=== PATIENT | male | born 1960 | race Caucasian/White ===

== ENCOUNTER → 2019-07-27 09:37 | Outpatient (BNVA) | payer BC, SELFPAY | PROVIDERS: Family Provider Family Medicine; PCP Family Medicine; Visit Provider Internal Medicine Rheumatology | DX: M05.79 Rheumatoid arthritis with rheumatoid factor of multiple sites without organ or systems involvement (principal); Z79.899 Other long term (current) drug therapy; Z11.59 Encounter for screening for other viral diseases; Z72.89 Other problems related to lifestyle | CPT/HCPCS: 36415; 80076; 82565; 85651; 86140; 86704; 86803; 87340 ==

== ENCOUNTER → 2019-07-27 09:54 | Outpatient (BNVA) | payer BC, SELFPAY | PROVIDERS: Family Provider Family Medicine; PCP Family Medicine; Visit Provider Internal Medicine Rheumatology | DX: M05.79 Rheumatoid arthritis with rheumatoid factor of multiple sites without organ or systems involvement (principal); Z79.899 Other long term (current) drug therapy | CPT/HCPCS: 85025 ==

== ENCOUNTER 2020-03-01 16:01 | Outpatient (CLI) | payer BC, SELFPAY ==
--- NOTE | 2020-03-01 16:08 | XR_ITS ---
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 FINDINGS: The L1-L4 bone mineral density measures 1.214 g/cm2. This corresponds to a T score score of 0.0 and Z score of -0.2. Left femoral neck bone mineral density measures 1.029 g/cm2. This corresponds to a T score of -0.5 an d Z score of -0.4. Right femoral neck bone mineral density measures 0.970 g/cm2. This corresponds to a T score -0.9of an d Z score of -0.8. Mean femoral neck bone mineral density measures 1.000 g/cm2. This corresponds to a T score of -0.7 an d Z score of -0.6. XR/XR DEXA axial skeleton* [id number] IMPRESSION: Normal bone mineralization Patient's FRAX calculated 10 year probability for major osteoporotic fracture i s 13.0 % and osteoporotic hip fracture is 1.8%.
== END 2020-03-01 16:02 | disposition home or self-care (01) ==
LOC: RADWPI 16:07
PROVIDERS: Family Provider Family Medicine; PCP Family Medicine; Visit Provider Family Medicine
DX: Z79.52 Long term (current) use of systemic steroids (principal)
CPT/HCPCS: 77080

== ENCOUNTER 2021-12-29 16:05 | Emergency (ER) | payer BC, SELFPAY ==
[2021-12-29 16:05] VITALS: BP 143/97; PULSE 53; RESP 18; O2SAT 99; BMI 28.8
--- NOTE | 2021-12-29 16:06 | XRR_ITS ---
PROCEDURE INFORMATION: Exam: XR Right Hand Exam date and time: 12/29/2021 4:13 PM Age: 61 years old Clinical indication: Injury or trauma; Other: Laceration; Right; Index finger; Additional info: Finger lac TECHNIQUE: Imaging protocol: Radiologic exam of the Right hand. Views: 3 or more views. COMPARISON: No relevant prior studies available. FINDINGS: Bones/joints: Three views submitted. There is posterior and medial dislocation of the 2nd PIP joint. Cortical deformity with several small ossific densities are also noted at both dorsal and volar aspects suggesting multiple fracture fragments. However some fragments demonstrate somewhat smooth cortical margin which may represent a chronic finding. Findings suggest acute fracture dislocation through the PIP joint with a possible pre-existing chronic injury. No other acute fracture dislocation. Minimal degenerative changes are also seen involving multiple DIP joints, 1st CMC joint and distal radioulnar joint. There is a small subchondral cyst with peripheral sclerosis in the distal ulna measuring 6 mm. Soft tissues: There is anterior soft tissue irregularity and foci of air suggesting laceration injury. Injury to the flexor tendon may be present in this setting. Soft tissue swelling is seen surrounding remaining 2nd digit. XR/XR hand RT min 3V* [id number] IMPRESSION: 1. Fracture dislocation at the 2nd PIP joint. Please see discussion above. 2. Soft tissue and other nonacute findings as described above.
--- NOTE | 2021-12-29 16:06 | W.ED.UPPEXIN ---
HPI - Extremity Injury (Upper) General: Chief Complaint: Wound/Laceration Stated Complaint: Finger lac Time Seen by Provider: 12/29/21 16:06 History of Present Illness: Mr. Eduardo is a 61-year-old gentleman who presents to the emergency department due to finger injury. He was using a table saw and cut his right finger. Moderate to severe intensity pain. Does have numbness/tingling. Patient feels generally ill. No other specific changes in health, exacerbating, or alleviating factors identified. Onset (ago): minute(s) Handedness: right Severity: moderate Associated symptoms: Reports numbness and other Review of Systems General: Reports: 10 or more systems reviewed and unremarkable except in HPI and below PFSH ED PFSH: Medical History Encounter for health education High risk medication use Immunization counseling Osteoarthritis Rheumatoid arthritis Surgical History History of hernia repair Family History Other Cancer Diabetes Social History Smoking and tobacco status: never smoked Alcohol intake: current Alcohol intake frequency: holidays/special occasions only Marital status: History of recent travel: Yes (To [place] July) Physical Exam Const: COMMON NORMALS: alert GENERAL APPEARANCE: cooperative, well developed, ill appearing and diaphoretic HENMT: COMMON NORMALS: normocephalic and atraumatic HEAD & SCALP: normocephalic and atraumatic Eye: COMMON NORMALS: conjunctivae normal CONJUNCTIVA: Yes conjunctivae normal SCLERA: sclerae normal Neck/C-Spine: COMMON NORMALS: supple GENERAL: Yes trachea midline Resp: COMMON NORMALS: clear to auscultation bilaterally EFFORT & INSPECTION: Yes able to speak in complete sentences AUSCULTATION: clear to auscultation bilaterally Cardio: COMMON NORMALS: regular rhythm RATE: bradycardic RHYTHM: regular rhythm GI: COMMON NORMALS: Soft to palpation PALPATION: Yes Soft to palpation and No Tenderness to palpation present (GI) Extremity: NARRATIVE EXTREMITY EXAM: isolated laceration to R 2nd digit. The digit remains attached just by the posterior skin aspect. Finger is insensate distally. Pale and delayed cap refill initially. GENERAL: Yes normal exam except as noted and No edema Neuro: COMMON NORMALS: moves all extremities SENSORIUM/ORIENTATION: Yes alert and No Orientation impaired Psych: COMMON NORMALS: mental status grossly normal and Normal thought process present THOUGHT PROCESS: Normal thought process present Course ED course: - Patient was seen and evaluated by me at bedside - Patient placed on cardiac monitors, IV access obtained - Initial evaluation notable for exam as above. Open fracture dislocation with laceration of right hand second digit in a [id number]-vyhvdwgi patient. - Labs and xrays personally interpreted by me -Tdap, antibiotic, analgesia, and antiemetic given - Labs notable for no acute abnormality requiring intervention. - Imaging notable for fracture dislocation of the second PIP joint -Upon reevaluation/repositioning the finger appears to have regained blood supply distally. Cap refill only mildly delayed. - Upon serial reexamination after treatment the patient was improved - Based on patient history, evaluation, and testing as interpreted the most likely cause of the patient's condition is open fracture dislocation of dominant hand second digit secondary to laceration with tablesaw with tenuous blood supply stability. - The results of ED evaluation were discussed with the patient including plan for transfer due to requirement for level of care not available if discharged to prevent significant worsening/deterioration. Specifically patient requires evaluation by hand surgery as there is evidence of vascular compromise/intermittent vascular compromise and patient has unstable open fracture. -Discussed with hand surgery and patient accepted as transfer to ER at [facility] in [place]. At the request of hand surgery I did discuss with the patient that he may be seen by hand surgery in the emergency department and discharged. - Patient was transferred without further deterioration or significant events. Note: Click bubbles or prepopulated gómez in note writing are used for assistance with data collection and billing and are inherently more limited than narrative and other text portions of this note. Please use narrative for additional clinical history and defer to narrative/free test for any case of contradictory information. If information appears in only free text or click bubble it should be considered present or absent as reported. Please contact note senior grant writer for clarifications of clinical information or contradictory information. MDM is a brief summary, contradictory or erroneous seeming information should be clarified and full note should be reviewed. Vital Signs: Vital signs: Vital Signs Pulse Rate 51 L 12/29/21 17:09 Respiratory Rate 16 08/26/22 17:53 Blood Pressure 106/69 08/26/22 17:09 Pulse Oximetry 99 12/29/21 17:53 Oxygen Delivery Me thod 12/29/21 17:09 MDM - Extremity Injury (Upper) Medical Decision Making 61-year-old gentleman on immunosuppression for rheumatoid arthritis presenting with laceration with open fracture of right hand second digit. Patient is right-hand dominant. Initially finger appeared to lack blood supply however with repositioning blood supply improved though positioning remains tenderness. Patient clinical presentation consistent with partial vasovagal response as well. Improved with treatment. Patient transferred for hand surgery. Medical Records I reviewed the patient's medical records. Lab Data I reviewed the patient's lab results. : 12/29/21 16:40 12/29/21 16:40 Radiology Impressions Hand X-Ray 12/29/21 16:06 IMPRESSION: 1. Fracture dislocation at the 2nd PIP joint. Please see discussion above. 2. Soft tissue and other nonacute findings as described above. Laboratory Results WBC 6.2 10^3/uL (4.0-10.0) 12/29/21 16:40 RBC 4.04 10^6/uL (4.1-5.3) L 12/29/21 16:40 Hgb 13.1 g/dL (11.7-16.6) 12/29/21 16:40 Hct 39.2 % (42.0-52.0) L 12/29/21 16:40 MCV 97.0 fl (80-94) H 12/29/21 16:40 MCH 32.4 pg (28.0-34.0) 12/29/21 16:40 MCHC 33.4 g/dL (30.0-36.0) 12/29/21 16:40 RDW 12.4 % (12.1-15.1) 12/29/21 16:40 Plt Count 224 10^3/cmm (130-400) 12/29/21 16:40 MPV 10.1 fL (7.4-10.4) 12/29/21 16:40 Neut % (Auto) 40.8 % 12/29/21 16:40 Lymph % (Auto) 41.7 % 12/29/21 16:40 [place] % (Auto) 12.3 % 12/29/21 16:40 Eos % (Auto) 4.7 % 12/29/21 16:40 Baso % (Auto) 0.2 % 12/29/21 16:40 Neut # (Auto) 2.52 10^3/uL (1.8-7.7) 12/29/21 16:40 Lymph # (Auto) 2.6 10^3/uL (0.8-4.8) 12/29/21 16:40 [place] # (Auto) 0.8 10^3/uL (0.2-0.9) 12/29/21 16:40 Eos # (Auto) 0.3 10^3/uL (0.0-0.8) 12/29/21 16:40 Baso # (Auto) 0.0 10^3/uL (0.0-0.1) 12/29/21 16:40 Nucleated RBC % (auto) 0 % 12/29/21 16:40 Nucleated RBCs # 0.0 /100WBC 12/29/21 16:40 Sodium 142 mmol/L (136-145) 12/29/21 16:40 Potassium 3.7 mmol/L (3.5-5.1) 12/29/21 16:40 Chloride 107 mmol/L (98-107) 12/29/21 16:40 Carbon Dioxide 21 mmol/L (22-29) L 12/29/21 16:40 Anion Gap 17.7 (5-19) 12/29/21 16:40 BUN 22 mg/dL (8-23) 12/29/21 16:40 Creatinine 0.9 mg/dL (0.7-1.2) 12/29/21 16:40 GFR Calculation 85.8 mL/min (90-130) L 12/29/21 16:40 Glucose 114 mg/dL (65-115) 12/29/21 16:40 Calculated Osmolality 298 mOsm/kg (285-295) H 12/29/21 16:40 Calcium 8.2 mg/dL (8.5-10.5) L 12/29/21 16:40 Total Bilirubin 0.3 mg/dL (0.15-1.2) 12/29/21 16:40 AST 19 U/L (0-40) 12/29/21 16:40 ALT 10 U/L (0-41) 12/29/21 16:40 Alkaline Phosphatase 60 U/L (40-130) 12/29/21 16:40 Total Protein 6.5 g/dL (6.6-8.7) L 12/29/21 16:40 Albumin 3.9 g/dL (3.5-5.2) 12/29/21 16:40 Globulin 2.6 g/dL (1.3-4.6) 12/29/21 16:40 Discharge Plan Discharge Patient Disposition: Xfer Short-Term Hosp Clinical Impression: Laceration, High risk medication use, Open fracture dislocation of finger Condition: Stable Referrals: Garry Ray MD [Primary Care Provider] - Coding Level of Care Code ED Purchase Request Editor for Dennise Lomas
[2021-12-29] MEDS: ceFAZolin 2,000 MG in sodium chloride 0.9% (plus) 50 ML 100 MG IV (16:18)
[2021-12-29 16:19] VITALS: RESP 18; O2SAT 99
[2021-12-29] MEDS: fentaNYL 50 mcg/mL INJ 2mL IVP ×2 (16:19→17:53)
[2021-12-29] MEDS: tetanus-dipt-pertussis 0.5 mL SDV IM (16:19)
[2021-12-29] MEDS: ondansetron 2 mg/ML SDV 2 mL 4 MG IVP (16:20)
[2021-12-29 16:52] LABS: Basophils % 0.2 %; Eosinophils # 0.3 10^3/uL (0.0-0.8); Eosinophils % 4.7 %; Hematocrit 39.2 % (42.0-52.0); Hemoglobin 13.1 g/dL (11.7-16.6); Lymphocytes # 2.6 10^3/uL (0.8-4.8); Lymphocytes % 41.7 %; Mean Corpuscular HGB Conc 33.4 g/dL (30.0-36.0); Mean Corpuscular Hemoglobin 32.4 pg (28.0-34.0); Mean Platelet Volume 10.1 fL (7.4-10.4); Monocytes # 0.8 10^3/uL (0.2-0.9); Monocytes % 12.3 %; Neutrophils # 2.52 10^3/uL (1.8-7.7); Neutrophils % 40.8 %; Nucleated Red Blood Cells % 0 %; Platelet Count 224 10^3/cmm (130-400); Red Blood Count 4.04 10^6/uL (4.1-5.3); Red Cell Distribution Width 12.4 % (12.1-15.1); White Blood Count 6.2 10^3/uL (4.0-10.0)
[2021-12-29 17:09] VITALS: BP 106/69; PULSE 51; O2SAT 98
--- NOTE | 2021-12-29 17:09 | PC.NURSE ---
PT REQUESTS SIGN TRANSFER FORM DUE TO HIS INABILITY TO SIGN WITH HIS RIGHT HAND.
[2021-12-29 17:40] LABS: Alanine Aminotransferase 10 U/L (0-41); Albumin Level 3.9 g/dL (3.5-5.2); Alkaline Phosphatase 60 U/L (40-130); Anion Gap 17.7 (5-19); Aspartate Amino Transferase 19 U/L (0-40); Blood Urea Nitrogen 22 mg/dL (8-23); Calcium 8.2 mg/dL (8.5-10.5); Carbon Dioxide 21 mmol/L (22-29); Chloride 107 mmol/L (98-107); Globulin 2.6 g/dL (1.3-4.6); Glomerular Filtration Rate 85.8 mL/min (90-130); Glucose 114 mg/dL (65-115); Osmolality Calculated 298 mOsm/kg (285-295); Potassium 3.7 mmol/L (3.5-5.1); Sodium 142 mmol/L (136-145); Total Bilirubin 0.3 mg/dL (0.15-1.2); Total Protein 6.5 g/dL (6.6-8.7)
[2021-12-29 17:53] VITALS: RESP 16; O2SAT 99
== END 2021-12-29 18:04 | disposition short-term general hospital (02) ==
PROVIDERS: Emergency Provider Emergency Medicine; PCP Family Medicine
DX: S62.610B Displaced fracture of proximal phalanx of right index finger, initial encounter for open fracture (principal); W27.0XXA Contact with workbench tool, initial encounter; Z23 Encounter for immunization
CPT/HCPCS: 73130; 80053; 85025; 90471; 90715; 96365; 96366; 96375; 96376; 99284; J2405; J3010

== ENCOUNTER → 2023-01-02 14:37 | Outpatient (BNVA) | payer BC, SELFPAY | PROVIDERS: PCP Family Medicine; Visit Provider Internal Medicine | DX: R07.9 Chest pain, unspecified (principal) | CPT/HCPCS: 93005 ==

== ENCOUNTER 2023-01-08 07:53 | Outpatient (CLI) | payer BC, SELFPAY ==
--- NOTE | 2023-01-08 08:00 | USCV_ITS ---
Rodrigo Eduardo Age: 62 Gender: M : 1960 Exam Date: 01/08/2023 08:16 Ordering Phys: Garry Ray MD Technologist: Reva Whalen Exam Location: [facility] – [place] Indication: Atrial fibrillation BP: 130 / 70 HR: 91 Rhythm: Atrial fibrillation Technical Quality: Good MEASUREMENTS (Male / Female) Normal Values 2D ECHO LV Diastolic Diameter PLAX 5.1 cm 4.2 - 5.9 / 3.9 - 5.3 cm LV Systolic Diameter PLAX 2.5 cm IVS Diastolic Thickness 1.1 cm 0.6 - 1.0 / 0.6 - 0.9 cm IVS Systolic Thickness 1.7 cm LVPW Diastolic Thickness 1.1 cm 0.6 - 1.0 / 0.6 - 0.9 cm LVPW Systolic Thickness 2.0 cm LVOT Diameter 2.0 cm LV Ejection Fraction 2D Teich 80.8 % LV Ejection Fraction MOD 2C 62.8 % LV Ejection Fraction 2C AL 62.6 % LA Diameter 3.9 cm LA Width 4.3 cm LA Height 6.7 cm RA Width 2.7 cm RA Height 4.3 cm Aorta at Sinotubular Diameter 3.3 cm IVC Diameter 1.7 cm M-MODE Aortic Annulus Diameter 3.1 cm LA Ao Ratio MM 1.4 MV E Point Septal Separation 1.2 cm DOPPLER AV Peak Velocity 117.0 cm/s LVOT Peak Velocity 86.0 cm/s AV Area Cont Eq vti 2.1 cm squared AV Area Cont Eq pk 2.4 cm squared MV Peak Velocity 82.0 cm/s MV Area PHT 4.9 cm squared Mitral E to A Ratio 3.1 MV E' Velocity 69.0 cm/s TR Peak Velocity 205.5 cm/s TR Peak Gradient 16.9 mmHg Right Atrial Pressure 5.0 mmHg Pulmonary Artery Systolic Pressu 21.9 mmHg PV Peak Velocity 94.0 cm/s RV Acceleration Time 0.1 s RV Ejection Time 0.3 s RV AcT/ET 0.4 FINDINGS Left Ventricle Left ventricle is normal in size. LV systolic fucntion is normal with EF of 50-55%. No regional wall motion abnormalities. Diastolic function is indeterminate because of atrial fibrillation. Right Ventricle Normal in size and function Right Atrium Normal in size Left Atrium Dilated Mitral Valve Structurally normal mitral valve. Mild to moderate mitral regurgitation. Aortic Valve Structurally normal aortic valve. Mild aortic regurgitation. No significant stenosis. Tricuspid Valve Mild tricuspid regurgitation. Insufficient TR jet to calculate RVSP Pulmonic Valve Not well visualized Pericardium Normal Aorta Normal in size IVC Appears to be normal CONCLUSIONS LV systolic function is normal with EF of 50 to 55%. Diastolic function is indeterminate because of atrial fibrillation Left atrial dilation Mild to moderate mitral regurgitation Mild tricuspid regurgitation No comparison studies are available. Tate Mckeon MD (Electronically Signed) Final Date: 25 January 2023 14:25 S
== END 2023-01-08 07:54 | disposition home or self-care (01) ==
LOC: RAD 07:57
PROVIDERS: PCP Family Medicine; Visit Provider Family Medicine
DX: I48.91 Unspecified atrial fibrillation (principal); I34.0 Nonrheumatic mitral (valve) insufficiency; I07.1 Rheumatic tricuspid insufficiency
CPT/HCPCS: 93306

== ENCOUNTER → 2024-06-12 09:17 | Outpatient (BNVA) | payer BC, SELFPAY | PROVIDERS: PCP Family Medicine; Visit Provider Family Medicine | DX: R79.89 Other specified abnormal findings of blood chemistry (principal); Z79.899 Other long term (current) drug therapy; I48.11 Longstanding persistent atrial fibrillation; Z79.01 Long term (current) use of anticoagulants; M05.79 Rheumatoid arthritis with rheumatoid factor of multiple sites without organ or systems involvement; Z12.5 Encounter for screening for malignant neoplasm of prostate; E55.9 Vitamin D deficiency, unspecified | CPT/HCPCS: 80053; 80061; 82306; 82607; 82746; 84443; 85025; 85651; 86140; G0103 ==

== ENCOUNTER 2024-08-04 06:48 | Outpatient (CLI) | payer BC, SELFPAY ==
--- NOTE | 2024-08-04 07:00 | USCV_ITS ---
Jayce Rodrigo Age: 63 Gender: M : 1960 Exam Date: 08/04/2024 07:00 Ordering Phys: Felicitas Hendrickson NP Technologist: Exam Location: [facility] – [place] Indication: mv regurg BP: / HR: 69 Rhythm: Sinus Technical Quality: MEASUREMENTS (Male / Female) Normal Values 2D ECHO LV Diastolic Diameter PLAX 4.7 cm 4.2 - 5.9 / 3.9 - 5.3 cm IVS Diastolic Thickness 1.1 cm 0.6 - 1.0 / 0.6 - 0.9 cm IVS Systolic Thickness 2.1 cm LVPW Diastolic Thickness 1.7 cm 0.6 - 1.0 / 0.6 - 0.9 cm LVPW Systolic Thickness 2.1 cm LVOT Diameter 2.1 cm LV Ejection Fraction 2D Teich 66.0 % LV Ejection Fraction MOD 4C 60.6 % LV Ejection Fraction MOD 2C 58.6 % LV Ejection Fraction 2C AL 59.4 % LA Diameter 4.5 cm RA Systolic Volume 4C AL 70.7 ml RA Systolic Volume 4C MOD 71.6 ml Aorta at Sinotubular Diameter 3.0 cm M-MODE LA Ao Ratio MM 1.4 AV Cusp Separation MM 2.8 cm DOPPLER AV Peak Velocity 120.0 cm/s LVOT Peak Velocity 73.0 cm/s AV Area Cont Eq vti 2.2 cm squared AV Area Cont Eq pk 2.1 cm squared MV Peak Velocity 110.0 cm/s MV Area PHT 3.9 cm squared Mitral E to A Ratio 4.7 TV Peak Velocity 301.0 cm/s TR Peak Velocity 302.0 cm/s TR Peak Gradient 36.5 mmHg TV Peak E Velocity 90.0 cm/s PV Peak Velocity 120.0 cm/s FINDINGS Left Ventricle Normal left ventricular size, systolic function and wall thickness, with no regional wall motion abnormalities. Left ventricular ejection fraction is estimated at 60 %. Grade III/IV diastolic dysfunction (restrictive filling pattern), severely elevated filling pressures. Right Ventricle The right ventricle is normal in size and function. Right Atrium The right atrium is normal in size. Left Atrium Moderately increased left atrial size. Mitral Valve Mildly thickened mitral valve. No mitral valve stenosis. Moderate mitral valve regurgitation. Aortic Valve Mild aortic valve calcification. No aortic valve stenosis. Mild aortic valve regurgitation. Tricuspid Valve Mild tricuspid valve regurgitation. Pulmonic Valve Structurally normal pulmonic valve without significant stenosis. There is no pulmonic regurgitation. Pericardium Normal pericardium without effusion. Aorta Normal ascending aorta dimension. IVC The inferior vena cava appears normal. CONCLUSIONS Normal left ventricular size, systolic function and wall thickness, with no regional wall motion abnormalities. Left ventricular ejection fraction is estimated at 60 %. Grade III/IV diastolic dysfunction (restrictive filling pattern), severely elevated filling pressures. Moderately increased left atrial size. Mildly thickened mitral valve. No mitral valve stenosis. Moderate mitral valve regurgitation. Mild tricuspid valve regurgitation. There is no pericardial effusion. Right atrial pressure is around 10 mm of mercury. Joyce Haney MD (Electronically Signed) Final Date: 20 August 2024 16:04 S
== END 2024-08-04 06:49 | disposition home or self-care (01) ==
PROVIDERS: PCP Family Medicine; Visit Provider Nurse Practitioner Family
DX: I34.0 Nonrheumatic mitral (valve) insufficiency (principal); R93.1 Abnormal findings on diagnostic imaging of heart and coronary circulation; I35.8 Other nonrheumatic aortic valve disorders; I35.1 Nonrheumatic aortic (valve) insufficiency; I07.1 Rheumatic tricuspid insufficiency
CPT/HCPCS: 93306

== ENCOUNTER 2025-01-25 10:13 | Emergency (ER) | payer BC, SELFPAY ==
[2025-01-25] VITALS (7 sets, daily range): BP systolic 132–156; BP diastolic 87–108; PULSE 64–126; RESP 20; TEMP 36.7; O2SAT 94–98; BMI 30.9
--- NOTE | 2025-01-25 10:19 | ECG_ITS ---
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 Measurements Intervals [place] Rate: 127 P: 233 IN: 176 QRS: -39 QRSD: 142 T: -4 QT: 292 QTc: 425 Interpretive Statements ECTOPIC ATRIAL TACHYCARDIA LEFT AXIS DEVIATION [QRS AXIS < -30] INTRAVENTRICULAR CONDUCTION DELAY [130+ ms QRS DURATION] Compared to ECG 01/02/2023 14:44:08 Left-axis deviation now present Intraventricular conduction delay now present Sinus rhythm no longer present Indeterminate axis no longer present Electronically Signed On 01-25-2025 20:20:53 CDT by Barbie Chun M.D. [email or web address]
--- OUTSIDE RECORDS SUMMARY | 2025-01-25 10:24 | XMS_ITS | Clinical Summary ---
Author Organization [facility] A dministration Address [address] [place] [address] Care Team Providers Care Mold Checker Name Role Phone Garry Ray MD Primary Care Provider [phone] Allergies Active Allergy Reactions Criticality Noted Date Comments Montelukast Itching Low 01/02/2023 Medications fluticasone propionate (FLONASE) 50 mcg/spray [place], Suspension nasal inhaler shake liquid and USE TWO SPRAYS IN EACH NOSTRIL EVERY DAY 3 Active methotrexate (RHEUMATREX) 2.5 mg Tablet take SEVEN tablets BY MOUTH every week 3 Active metoprolol tartrate (LOPRESSOR) 25 mg tablet Take 25 mg by mouth 2 times daily. 3 Active glucosamine HCl/chondroitin dolan (GLUCOSAMINE-CH ONDROITIN ORAL) Take by mouth daily. Active TURMERIC ORAL Take by mouth. A ctive multivitamin (DAILY-MELONIE) tablet Take 1 Tablet by mouth daily. Active CHOLECALCIFEROL , VITAMIN D3, ORAL Take by mouth. Activ e famotidine (PEPCID) 20 mg tablet Take 20 mg by mouth daily at bedtime. Active folic acid (FOLVITE) 1 mg tablet Take 1 mg by mouth daily. Active cetirizine (ZyrTEC) 10 mg tablet Take 10 mg by mouth daily at bedtime. Active Orencia ClickJect 125 mg/mL Auto-Injector 1 Pen by subcutaneous (via wearable injector) route every 7 days. 5 Active aspirin (AUSTYN) 325 mg tablet Take 325 mg by mouth daily. Active Active Problems Problem Noted Date Diagnosed Date Sinus bradycardia 11/21/2023 A-fib 07/25/2023 Paroxysmal atrial fibrillation 04/25/2023 Anticoagulated 04/25/2023 Encounters Date Type Department Care Team Description 01/19/2025 External Device Data ST[facility] ABSTRACTION Provider, Abstract 01/12/2025 External Device Data [facility] ABSTRACTION Provider, Abstract 11/24/2024 External Device Data [facility] ABSTRACTION Provider, Abstract 10/27/2024 External Device Data [facility] ABSTRACTION Provider, Abstract 10/27/2024 External Device Data [facility] ABSTRACTION Provider, Abstract from Last 3 Months Immunizations Immunization Administration Dates Next Due (ADACEL/BOOSTRIX)(10 YR UP) TDAP VACCINE, 0.5ML, IM 12/29/2021 (PFIZER)(12 YR UP) COVID-19 VACCINE - EMERGENCY USE AUTHORIZATION, MRNA, [id number](PF) 30 MCG/0.3 ML IM SUSP 02/03/2021,07/01/2020,06/03/2020 (PREVNAR 13)(6 WKS UP) PNEUM OCOCCAL CONJUGATE (PCV13) 0.5 ML, IM 04/13/2016 (TDVAX)(7 YRS UP) TETANUS AN D DIPHTHERIA TOXOIDS, ADSORBED (2 LF OF TETANUS TOXOID AND 2 LF OF DIPHTHERIA TOXOID), 0.5ML (PF), IM 10/06/2004 Influenza Seasonal Unspecifi ed Formulation IM 02/15/2023,04/11/2021,02/03/2017,2015,02/03/2014,02/04/2012 Zoster Vaccine Live SQ 10/13/2018,06/04/2018 Social History Tobacco Use Types Packs/Day Years Used Date Smoking Tobacco: Never Smokeless Tobacco: Former Snuff Tobacco Cessation:Counseling Given: No Feeling Safe Answer Date Recorded Are you in a relationship wi th someone who hurts you emotionally and/or physically? 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 Gender Identity Not on file Sexual Orientation Not on file Last Filed Vital Signs Vital Sign Reading Time Taken Comments Blood Pressure 138/80 09/10/2024 8:06 AM CDT Pulse 61 09/10/2024 8:06 AM CDT Temperature 36.6 C (97.8 F) 08/22/2023 11:45 AM CDT Respiratory Rate 16 08/22/2023 11:45 AM CDT Oxygen Saturation 98% 11/21/2023 2:05 PM CDT Inhaled Oxygen Concentration - - Weight 104.8 kg (231 lb) 09/10/2024 8:06 AM CDT Height 185.4 cm (6' 1 ) 09/10/2024 8:06 AM CDT Body Mass Index 30.48 09/10/2024 8:06 AM CDT Plan of Treatment Upcoming Encounters Date Type Department Care Team (Late st Contact Info) Description 06/16/2025 8:00 AM AGRICULTURAL SCIENCE PROFESSOR Office Visit [facility] [address] [facility] [address] [place] [phone] Marilyn Berger MD [address] [facility] [address] [place] [phone] Imani Turner PA NO ADDRESS ON FILE Health Maintenance Due Date Last Done Comments Pre-Diabetes and Diabetes Screening 1960 COLORECTAL SCREENING 2005 Colorectal Cancer Screening 2005 FIT-DNA Q 3 years 2005 FIT/FOBT Q 1 year 2005 Flex Sig/CT Colonography Q 5 years 2005 ZOSTER VACCINE (1 of 2) 12/08/2018 10/13/2018, 06/04 RSV VACCINE (60+ or ) (1 - Risk 60-74 years 1-dose series) 2020 INFLUENZA VACCINE (#1) 2024 , 02/27/2022, 04/11/2021, Additional history exists COVID-19 Vaccine (8 - Pfizer risk ) 01/04/2025 02/04/2024, 04/04/2023, 02/27/2022, Additional history exists DTAP/TDAP/TD VACCINES (2 - T d or Tdap) 12/30/2031 12/29/2021, 10/06/2004 Insurance [employer] Advance Directives For more information, please contact: [phone] * Full Code (Latest Code Status on File) Date Activated Date Inactivated Comments 08/21/2023 11:17 AM 08/22/2023 4:45 PM * Full Code Date Activated Date Inactivated Comments 08/21/2023 6:10 AM 08/21/2023 11:17 AM Care Teams Mold Checker Relationship Specialty Start Date End Date Garry Ray MD [address] [phone] PCP - General Family Practice 08/23/23
--- OUTSIDE RECORDS SUMMARY | 2025-01-25 10:24 | XMS_ITS | Clinical Summary ---
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
--- OUTSIDE RECORDS SUMMARY | 2025-01-25 10:24 | XMS_ITS | Encounter Summary ---
Author Organization [employer] [facility] Address [address] [place] [address] Care Team Providers Care Caretaker Name Role Phone Unavailable Primary Care Provider Unavailabl e Encounter Details Date Type Department Care Team (Latest Contact Info) Description 10/06/2004 Outpatient Historical [facility] Medicine 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
--- OUTSIDE RECORDS SUMMARY | 2025-01-25 10:24 | XMS_ITS | Encounter Summary ---
Author Organization [facility] Address 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 Gender Identity Not on file Sexual Orientation Not on file documented as of this encounter Plan of Treatment Upcoming Encounters Date Type Department Care Team (Late st Contact Info) Description 06/16/2025 8:00 AM CLIENT CARE MANAGER Office Visit [facility] [address] [place] [phone] Marilyn Berger MD [address] [place] [phone] Imani Turner PA NO ADDRESS ON FILE documented as of this encounter Visit Diagnoses Not on filedocumented in this encounter Care Teams Senior Android Software Engineer Relationship Specialty Start Date End Date Garry Ray MD [address] [phone] PCP - General Family Practice 08/23/23 documented as of this encounter
--- OUTSIDE RECORDS SUMMARY | 2025-01-25 10:24 | XMS_ITS | Encounter Summary ---
Author Organization [employer] [facility] Address [address] [place] [address] Care Team Providers Care Numerologist Name Role Phone Unavailable Primary Care Provider Unavailabl e Encounter Details Date Type Department Care Team (Latest Contact Info) Description 02/08/2004 Outpatient Historical [facility] Medicine 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
--- NOTE | 2025-01-25 10:29 | XR_ITS ---
WS: [id number] Exam: XR chest 1V portable [id number] Date/Time of Exam: 01/25/2025 10:29 AM Reason For Exam: chest pain Comparison 02/11/2020. Lungs are fully expanded and clear. Cardiomediastinal silhouette unremarkable for technique. No pleural effusion. Unremarkable bony structures. XR/XR chest 1V portable [id number] IMPRESSION: 1. No acute cardiopulmonary finding.
--- NOTE | 2025-01-25 10:30 | W.ED.ARRPALP ---
HPI - Arrhythmia/Palpitations General: Chief Complaint: Arrhythmia/Palpitations Stated Complaint: bp issues, high hr, chest discomfort Time Seen by Provider: 01/25/25 10:29 History of Present Illness: 64-year-old male presents to the emergency room with rapid heart rate. He said this for the last day and a half is more intense today. He has a known history of atrial fibrillation previously had an ablation he was recently switched from metoprolol to tartrate to metoprolol succinate. No chest pain at this time. No shortness of breath or diaphoresis. Related Data Home Medications ?Medication ?Instructions ?Recorded ?Confirmed cetirizine 10 mg tablet (Zyrtec) 10 mg PO DAILY 08/04/19 01/18/25 Folic Acid PO 01/02/23 01/18/25 Multi Vitamin PO 01/02/23 01/18/25 antiarthritic combination no.2 900 mg PO 01/02/23 01/18/25 mg tablet (glucosamine-chondroitin) cholecalciferol (vitamin D3) 25 25 mcg PO DAILY 01/02/23 01/18/25 mcg (1,000 unit) capsule fluticasone propionate 50 1 spray intranasal BID 01/02/23 01/18/25 mcg/actuation nasal spray,suspension aspirin 325 mg tablet,delayed 325 mg PO DAILY 07/10/24 01/18/25 release abatacept 125 mg/mL subcutaneous mg SUBCUT 12/10/24 01/18/25 auto-injector (Orencia ClickJect) hydroxychloroquine 200 mg tablet mg PO 12/10/24 01/18/25 Previous Rx's ?Medication ?Instructions ?Recorded methotrexate sodium 2.5 mg tablet 15 mg (6 x 2.5 mg) PO .Q7days #30 09/09/19 tabs omeprazole 40 mg capsule,delayed 40 mg PO DAILY #90 caps 12/10/24 release pneumo 21-mellisa conj-dip crm(PF) 0.5 0.5 ml IM ONCE #0.5 mL 12/10/24 mL IM syringe metoprolol succinate 50 mg 75 mg (1.5 x 50 mg) PO DAILY #135 01/18/25 tablet,extended release 24 hr tabs metoprolol succinate 100 mg 100 mg PO DAILY #30 tabs 01/25/25 tablet,extended release 24 hr (Toprol XL) Allergies Allergy/AdvReac Type Severity Reaction Status Date / Time montelukast (From Singulair) Allergy Mild ADR-Itching Verified 01/18/25 14:43 Review of Systems Const: Denies: fever(s) or chills Card: Reports: palpitations and irregular heart rhythm; Denies: chest pain Resp: Denies: dyspnea GI: Denies: abdominal pain : Denies: dysuria, urinary frequency or urinary urgency Musc: Denies: neck pain or back pain Skin/Breast: Denies: rash PFSH ED PFSH: Medical History Rheumatoid arthritis involving multiple sites with positive rheumatoid factor Osteoarthritis Encounter for health education High risk medication use Immunization counseling Surgical History History of hernia repair Family History Father Cancer Leukemia Congestive heart failure (CHF) Mother Diabetes Social History Smoking and tobacco/nicotine status: never used tobacco/nicotine Alcohol intake: current Alcohol intake frequency: 0-2 Drinks per Day Alcohol type: beer Substance/Drug Use: never Marital status: Physical Exam Const: COMMON NORMALS: no acute distress GENERAL APPEARANCE: cooperative and comfortable ORIENTATION/CONSCIOUSNESS: Yes awake, Yes oriented to person, Yes oriented to place and Yes oriented to time HENMT: COMMON NORMALS: normocephalic, atraumatic and hearing grossly normal bilaterally HEAD & SCALP: normocephalic and atraumatic Resp: COMMON NORMALS: normal respiratory effort, No retractions, No use of accessory muscles and clear to auscultation bilaterally AUSCULTATION: clear to auscultation bilaterally Cardio: COMMON NORMALS: regular rate, regular rhythm and No murmurs present (Cardio) RATE: regular rate RHYTHM: regular rhythm GI: COMMON NORMALS: Soft to palpation and No hepatosplenomegaly present AUSCULTATION: Yes normoactive bowel sounds PALPATION: Yes Soft to palpation, No Tenderness to palpation present (GI), No Guarding due to palpation present (GI) and Yes No hepatosplenomegaly present Extremity: COMMON NORMALS: normal to inspection, capillary refill normal, no clubbing, cyanosis or edema, no calf tenderness and no pedal edema Neuro: SENSORIUM/ORIENTATION: Yes oriented to person, Yes oriented to place and Yes oriented to time Skin: COMMON NORMALS: no rashes or lesions noted GENERAL SKIN EXAM: no rashes or lesions noted Course Vital Signs: Vital signs: Vital Signs Temperature 98.0 F 01/25/25 10:19 Pulse Rate 85 01/25/25 12:34 Respiratory Rate 20 H 01/25/25 10:19 Blood Pressure 145/87 01/25/25 12:34 Pulse Oximetry 94 01/25/25 12:34 Oxygen Delivery Me thod Room Air 01/25/25 11:27 MDM - Arrhythmia/Palpitations Medical Decision Making Patient converted and maintained his on normal sinus rhythm after push dose of IV Cardizem IV drip was not started. Monitoring for time then ambulated he maintains in the sinus rhythm. His blood pressure still slightly elevated heart rate is at approximately 100. Rhythm on telemetry after converting maintained sinus with a rate of 90-105. Patient remained asymptomatic. Discussed with Dr. Mckeon will increase his metoprolol to 100 mg once a day and have him follow-up with cardiology within the next week return if he has recurrence. Medical Records I reviewed the patient's medical records. Lab Data I reviewed the patient's lab results. 01/25/25 10:36 01/25/25 10:36 Radiology Impressions Chest X-Ray 01/25/25 10:29 IMPRESSION: 1. No acute cardiopulmonary finding. Laboratory Results WBC 6.21 10^3/uL (3.29-11.43) 01/25/25 10:36 RBC 4.71 10^6/uL (3.85-5.65) 01/25/25 10:36 Hgb 15.20 g/dL (11.27-16.99) 01/25/25 10:36 Hct 45.0 % (37-53) 01/25/25 10:36 MCV 95.5 fl (82-101) 01/25/25 10:36 MCH 32.3 pg (27-33) 01/25/25 10:36 MCHC 33.8 g/dL (30-55) 01/25/25 10:36 RDW 13.1 % (12.1-15.1) 01/25/25 10:36 Plt Count 273 10^3/cmm (157-399) 01/25/25 10:36 MPV 9.9 fL (7.4-10.4) 01/25/25 10:36 Neut % (Auto) 62.4 % 01/25/25 10:36 Lymph % (Auto) 23.2 % 01/25/25 10:36 [place] % (Auto) 10.3 % 01/25/25 10:36 Eos % (Auto) 3.4 % 01/25/25 10:36 Baso % (Auto) 0.5 % 01/25/25 10:36 Neut # (Auto) 3.88 10^3/uL (1.8-7.7) 01/25/25 10:36 Lymph # (Auto) 1.4 10^3/uL (0.8-4.8) 01/25/25 10:36 [place] # (Auto) 0.6 10^3/uL (0.2-0.9) 01/25/25 10:36 Eos # (Auto) 0.2 10^3/uL (0.0-0.8) 01/25/25 10:36 Baso # (Auto) 0.0 10^3/uL (0.0-0.1) 01/25/25 10:36 Nucleated RBC % (auto) 0 % 01/25/25 10:36 Nucleated RBCs # 0.0 /100WBC 01/25/25 10:36 ESR 2 mm/hr (0-10) 01/25/25 10:36 Sodium 140 mmol/L (136-145) 01/25/25 10:36 Potassium 4.9 mmol/L (3.5-5.1) 01/25/25 10:36 Chloride 103 mmol/L (98-107) 01/25/25 10:36 Carbon Dioxide 24 mmol/L (22-29) 01/25/25 10:36 Anion Gap 17.9 (5-19) 01/25/25 10:36 BUN 15 mg/dL (8-23) 01/25/25 10:36 Creatinine 0.8 mg/dL (0.7-1.2) 01/25/25 10:36 GFR Calculation 97.3 mL/min (90-130) 01/25/25 10:36 Glucose 110 mg/dL (65-115) 01/25/25 10:36 Calculated Osmolality 291 mOsm/kg (285-295) 01/25/25 10:36 Calcium 9.2 mg/dL (8.5-10.5) 01/25/25 10:36 Total Bilirubin 0.3 mg/dL (0.15-1.2) 01/25/25 10:36 AST 20 U/L (0-40) 01/25/25 10:36 ALT 11 U/L (0-41) 01/25/25 10:36 Alkaline Phosphatase 67 U/L (40-130) 01/25/25 10:36 Troponin T Baseline 11 ng/L (0-15) 01/25/25 10:36 Troponin T 120 Minute 10.27 ng/L (0-15) 01/25/25 12:14 Delta Troponin T -0.73 ABS# (0-10) L 01/25/25 12:14 Total Protein 7.2 g/dL (6.6-8.7) 01/25/25 10:36 Albumin 4.5 g/dL (3.5-5.2) 01/25/25 10:36 Globulin 2.7 g/dL (1.3-4.6) 01/25/25 10:36 TSH 1.06 uIU/mL (0.27-4.20) 01/25/25 10:36 All radiology interpretation(s) finalized by discharge EKG Data EKG 1: Interpretation: EKG 01/25/2025 10:19 AM A-fib with RVR rate of [address] changes noted Other EKG comments: Chest X-Ray 01/25/25 10:29 IMPRESSION: 1. No acute cardiopulmonary finding. Discharge Plan Discharge Patient Disposition: Home Clinical Impression: Paroxysmal A-fib Condition: Stable Prescriptions: New metoprolol succinate [Toprol XL] 100 mg tablet extended release 24 hr 100 mg PO DAILY Qty: 30 0RF No Action cetirizine [Zyrtec] 10 mg tablet 10 mg PO DAILY aspirin 325 mg tablet,delayed release (DR/EC) 325 mg PO DAILY hydroxychloroquine 200 mg tablet PO Orencia ClickJect 125 mg/mL auto-injector SUBCUT omeprazole 40 mg capsule,delayed release(DR/EC) 40 mg PO DAILY Qty: 90 1RF pneumo 21-mellisa conj-dip crm(PF) 0.5 mL syringe 0.5 ml IM ONCE Qty: 0.5 0RF fluticasone propionate 50 mcg/actuation spray,suspension 1 spray intranasal BID Rx Instructions: administer into each nostril glucosamine-chondroitin 900 mg tablet PO Multi Vitamin PO cholecalciferol (vitamin D3) 25 mcg (1,000 unit) capsule 25 mcg PO DAILY Folic Acid PO metoprolol succinate 50 mg tablet extended release 24 hr 75 mg PO DAILY Qty: 135 3RF methotrexate sodium 2.5 mg tablet 15 mg PO .Q7days Qty: 30 3RF Discharge Orders: Discharge ED (Routine); Ordered 01/25/25 Ordered By: Roman Chery Referrals: Lalito Link, [Primary Care Provider, Family Practice] Patient Instructions: Opioid Safety, Pain Management, Patient Portal & Anneliese Instructions Activity Restrictions/Additional Instructions: Thank you for choosing [facility] for your healthcare needs today. It is very important that you follow up as instructed or that you return to the Emergency Department should you have concerns or if your condition changes or worsens in any way. Emergency department visits are focused on emergent conditions, in some cases you may require further evaluation on an outpatient basis. You were seen in the emergency room with a rapid heart rate. Your heart rate improved with a single dose of IV Cardizem. We discussed your case with Dr. Mckeon he recommends increasing her Toprol XL to 100 mg once a day. Follow-up with their office within 1 week. Return if you have other episodes of rapid heart rate. (Please note that included in your discharge packet is information concerning opioid safety and pain management. This information is given to all patients were discharged from the ER regardless of their discharge diagnosis or the medicines they usually take or are prescribed.) Print Language: Thai Coding Level of Care Code ED Money Room Teller for Dennise Lomas
[2025-01-25] MEDS: dilTIAZem 5 mg/mL SDV 5 mL 20 MG IVP (10:43)
[2025-01-25 10:58] LABS: Hematocrit 45.0 % (37-53); Hemoglobin 15.20 g/dL (11.27-16.99); Mean Corpuscular HGB Conc 33.8 g/dL (30-55); Mean Corpuscular Hemoglobin 32.3 pg (27-33); Mean Corpuscular Volume 95.5 fl (82-101); Nucleated Red Blood Cells % 0 %; Platelet Count 273 10^3/cmm (157-399); Red Blood Count 4.71 10^6/uL (3.85-5.65); White Blood Count 6.21 10^3/uL (3.29-11.43)
[2025-01-25 11:25] LABS: Troponin(5th) Baseline 11 ng/L (0-15)
[2025-01-25 11:33] LABS: Alanine Aminotransferase 11 U/L (0-41); Albumin Level 4.5 g/dL (3.5-5.2); Alkaline Phosphatase 67 U/L (40-130); Blood Urea Nitrogen 15 mg/dL (8-23); Calcium 9.2 mg/dL (8.5-10.5); Carbon Dioxide 24 mmol/L (22-29); Chloride 103 mmol/L (98-107); Creatinine Clr Calc Pharmacy 119.5121; Globulin 2.7 g/dL (1.3-4.6); Glucose 110 mg/dL (65-115); Osmolality Calculated 291 mOsm/kg (285-295); Sodium 140 mmol/L (136-145); Thyroid Stimulating Hormone 1.06 uIU/mL (0.27-4.20); Total Protein 7.2 g/dL (6.6-8.7)
[2025-01-25 11:38] LABS: Anion Gap 17.9 (5-19); Aspartate Amino Transferase 20 U/L (0-40); Potassium 4.9 mmol/L (3.5-5.1)
[2025-01-25 12:43] LABS: Troponin 5 2HR 10.27 ng/L (0-15)
[2025-01-25 12:46] LABS: Troponin 5 2HR Delta -0.73 ABS# (0-10)
--- NOTE | 2025-01-26 07:16 | DCPLANNER ---
messaged heart care for er f/u
== END 2025-01-25 12:36 | disposition home or self-care (01) ==
PROVIDERS: Emergency Provider Family Medicine; PCP Family Medicine
DX: I48.0 Paroxysmal atrial fibrillation (principal); Z79.82 Long term (current) use of aspirin
CPT/HCPCS: 36415; 71045; 80053; 84443; 84484; 85025; 85651; 93005; 96374; 99285; J3490; J9999

== ENCOUNTER → 2025-01-29 12:15 | Outpatient (BNVA) | payer BC, SELFPAY | PROVIDERS: PCP Family Medicine; Visit Provider Internal Medicine | DX: R07.9 Chest pain, unspecified (principal); I48.91 Unspecified atrial fibrillation | CPT/HCPCS: 93005 ==

== ENCOUNTER 2025-02-11 06:46 | Day surgery (SDC) | payer BC, SELFPAY ==
--- NOTE | 2025-02-11 06:49 | ECG_ITS ---
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
--- NOTE | 2025-02-11 06:49 | USCV_ITS ---
Rodrigo Eduardo Age: 64 Gender: M : 1960 Exam Date: 02/11/2025 07:56 Ordering Phys: Tate Mckeon M.D ([email or web address]) Technologist: [place]am [place] [facility] [place]: card conver BP: / HR: Rhythm: Sinus Technical Quality: MEASUREMENTS (Male / Female) Normal Values Medications Per anesthesia team Complications None Proc. Components After anesthesia team sedated patient, we proceeded with advancing TANNER probe FINDINGS Left Ventricle LV systolic function is normal with EF of 50%. Right Ventricle Normal in size and function Right Atrium Normal in size Left Atrium Dilated IA Septum Grossly normal LA Appendage No left atrial appendage thrombus Mitral Valve Structurally normal mitral valve. Mild mitral regurgitation Aortic Valve Structurally normal aortic valve. Tricuspid Valve Structurally normal tricuspid regurgitation. Mild tricuspid regurgitation Pulmonic Valve Grossly normal Pericardium Normal Aorta Grossly normal CONCLUSIONS LV systolic function is normal Left atrial dilation No left atrial appendage thrombus seen Mild mitral regurgitation Mild tricuspid regurgitation Tate Mckeon MD (Electronically Signed) Final Date: 11 February 2025 09:30 S
[2025-02-11 07:12] VITALS: BP 144/114; PULSE 92; RESP 16; TEMP 36.5; O2SAT 98
--- NOTE | 2025-02-11 07:45 | W.PM.OPSUD ---
Surgery/Procedure H&P Update DATE OF PROCEDURE: February 11, 2025 DATE H&P PERFORMED: 01/29/25 H&P UPDATE INFORMATION: I have reviewed H&P completed within last 30 days, I have examined patient prior to procedure and No changes to prior documentation PREOP DIAGNOSIS: Atrial flutter/fibrillation with RVR PRIMARY INDICATION FOR PROCEDURE: Atrial flutter/fibrillation with RVR PLANNED PROCEDURE: Operation Date: 02/11/25 08:00 Proposed Procedures p TANNER - Echocardiogram Transesophageal; CV echo TANNER(Not Applicable) - Russell Elliott Cardioversion(Not Applicable) - Tate Mckeon M.D Anesthesia team available for sedation
--- NOTE | 2025-02-11 07:49 | ANES.PREANE2 ---
Pre-Anesthetic Assessment Height/Weight: Height 6 ft 1 in Weight 235 lb Temp Pulse Resp BP Pulse Ox O2 Del Method 97.7 F 92 16 144/114 98 Room Air 02/11/25 07:12 02/11/25 07:12 02/11/25 07:12 02/11/25 07:12 02/11/25 07:12 02/11/25 07:12 Preop Diagnosis: Atrial flutter/fibrillation with RVR Operation Date: 02/11/25 08:00 Proposed Procedures p TANNER - Echocardiogram Transesophageal; CV echo TANNER(Not Applicable) - Russell Elliott Cardioversion(Not Applicable) - Russell Elliott Beta Alexander taken within 24 hours: Yes Was Clonidine taken within 24 hours: N/A Last intake: Intake Last Liquid Date 02/10/25 Last Liquid Time 22:00 Last Solid Date 02/10/25 Last Solid Time 22:00 Social No alcohol and No tobacco Exam alert, oriented x 3 and clear to auscultation bilaterally Airway Submandibular: within normal limits Cervical ROM: within normal limits Mallampati: Class III Dentition: full Anesthetic Plan ASA status: 3 Anesthesia: MAC Other: Patient with paroxysmal A-fib. States he was painting his house and started feeling short of breath on 01/25/2025 and went to the ER and found to be in new onset A-fib with RVR Patient states that he has been getting very short of breath with this Denies any cardiac issues Took his beta-alexander today EKG from today showing atrial flutter with heart rate of 155 GERD, on omeprazole Rheumatoid arthritis noted, no steroids Plan for MAC anesthesia Medications/Allergies Home Medications ?Medication ?Instructions ?Recorded ?Confirmed ?Last Taken ?Type cetirizine 10 mg tablet (Zyrtec) 10 mg PO DAILY 08/04/19 02/08/25 02/08/25 History methotrexate sodium 2.5 mg tablet 15 mg (6 x 2.5 mg) PO .Q7days #30 09/09/19 02/08/25 02/03/25 Rx tabs Folic Acid 1 tab PO DAILY 01/02/23 02/08/25 02/08/25 History Multi Vitamin 1 tab PO DAILY 01/02/23 02/08/25 02/08/25 History antiarthritic combination no.2 900 900 mg PO DAILY 01/02/23 02/08/25 02/08/25 History mg tablet (glucosamine-chondroitin) cholecalciferol (vitamin D3) 25 25 mcg PO DAILY 01/02/23 02/08/25 02/08/25 History mcg (1,000 unit) capsule fluticasone propionate 50 1 spray intranasal BID 01/02/23 02/08/25 02/08/25 History mcg/actuation nasal spray,suspension aspirin 325 mg tablet,delayed 325 mg PO DAILY 07/10/24 02/08/25 02/08/25 History release omeprazole 40 mg capsule,delayed 40 mg PO DAILY #90 caps 12/10/24 02/08/25 02/08/25 Rx release metoprolol succinate 100 mg 100 mg PO DAILY #30 tabs 01/25/25 02/08/25 02/11/25 Rx tablet,extended release 24 hr (Toprol XL) apixaban 5 mg tablet (Eliquis) 5 mg PO BID #120 tabs 01/29/25 02/08/25 02/11/25 Rx Allergies Allergy/AdvReac Type Severity Reaction Status Date / Time montelukast (From Singulair) Allergy Mild ADR-Itching Verified 02/08/25 10:20 [facility] Anesthesia Medical History (Updated 02/02/25 @ 00:00 by CLIFF Henao) Rheumatoid arthritis involving multiple sites with positive rheumatoid factor Osteoarthritis Encounter for health education High risk medication use Immunization counseling Surgical History History of hernia repair Family History Father Cancer Leukemia Congestive heart failure (CHF) Mother Diabetes Social History Smoking and tobacco/nicotine status: never used tobacco/nicotine Alcohol intake: current Alcohol intake frequency: 0-2 Drinks per Day Alcohol type: beer Substance/Drug Use: never Marital status: Data Anesthesia Cardiac Studies: Echocardiogram 08/04/24 Cardiac Event Monitor 12/10/23
[2025-02-11 08:14] VITALS: BP 115/87; PULSE 72; RESP 20; TEMP 36.8; O2SAT 98
--- NOTE | 2025-02-11 08:25 | ECG_ITS ---
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
[2025-02-11 08:27] VITALS: BP 102/73; PULSE 73; RESP 16; O2SAT 93
[2025-02-11 08:47] VITALS: BP 111/87; PULSE 67; RESP 16; O2SAT 96
--- NOTE | 2025-02-11 09:00 | ANE.PACU2 ---
Inpatient post-anesthesia follow up: Airway intact: Yes Vital signs: Temperature 98.3 F Pulse Rate 67 Respiratory Rate 16 Blood Pressure 111/87 Pulse Oximetry 96 Oxygen Delivery Me thod Room Air Oxygen Flow Rate 10 Fraction of Inspir ed Oxygen Hydration adequate: Yes Nausea and vomiting: No Pain level: 1 Mental status: Baseline
--- NOTE | 2025-02-11 09:14 | PM.PROC ---
Procedure Note: Date of procedure: 02/11/25 Pre-procedure diagnosis: Atrial flutter/Fibrillation with RVR Post-procedure diagnosis: other (Normal sinus rhythm) Procedure: After anesthesia team sedated patient, we proceeded with advancing TANNER probe. Left atrial appendage thrombus was ruled out. We then successfully cardioverted patient to sinus rhythm with 200J synchronized shock x 1. Performing Provider: Tate Mckeon Complications: None Condition: stable Disposition: same day Coding Level of Care Code Acute Code for Karissa Cesilia
== END 2025-02-11 09:00 | disposition home or self-care (01) ==
PROVIDERS: PCP Family Medicine; Visit Provider Internal Medicine
PROC: (CPT 93312; principal; 2025-02-11 08:00)
PROC: 5A2204Z Restoration of Cardiac Rhythm, Single (ICD-10-PCS; 2025-02-11 08:00)
DX: I48.91 Unspecified atrial fibrillation (principal); I34.0 Nonrheumatic mitral (valve) insufficiency; I07.1 Rheumatic tricuspid insufficiency; K21.9 Gastro-esophageal reflux disease without esophagitis; M06.9 Rheumatoid arthritis, unspecified; Z79.82 Long term (current) use of aspirin
CPT/HCPCS: 92960; 93005; 93312; 93320; 93325; J2371; J2704; J7030

== ENCOUNTER 2025-03-17 13:55 | Oncology outpatient (recurring) (ONCR) | payer BC, SELFPAY ==
[2025-03-17] MEDS: diphenhydrAMINE 50 mg/mL SDV 1mL IVP (14:14)
[2025-03-17 14:34] VITALS: BP 113/69; PULSE 53; RESP 17; TEMP 36.3; O2SAT 96
[2025-03-17 15:11] VITALS: BP 110/65; PULSE 55; RESP 16; TEMP 36.9; O2SAT 96
== END 2025-04-04 23:59 | disposition home or self-care (01) ==
LOC: ONCMED 13:55
PROVIDERS: PCP Family Medicine; Visit Provider Internal Medicine
DX: M06.89 Other specified rheumatoid arthritis, multiple sites (principal); Z79.899 Other long term (current) drug therapy
CPT/HCPCS: 96375; 96413; A4222; J1200; J1602; J7050; J9999

== ENCOUNTER → 2025-03-30 14:29 | Outpatient (BNVA) | payer BC, SELFPAY | PROVIDERS: PCP Family Medicine; Visit Provider Nurse Practitioner Family | DX: I48.11 Longstanding persistent atrial fibrillation (principal); R00.1 Bradycardia, unspecified; R94.31 Abnormal electrocardiogram [ECG] [EKG] | CPT/HCPCS: 93005 ==